=== PATIENT | female | born 1970 ===

== ENCOUNTER 2019-07-09 06:03 | Inpatient (IN) | payer OTHER ==
[~2019-07-09] VITALS: Ht 157.5 cm; Wt 42.2 kg
[~2019-07-09 06:03] MED LIST: AMOXICILLIN500 M1 PO
[2019-07-10] MEDS ORDERED: GABAPENTIN300 MG PO (11:01)
== END 2019-07-10 14:34 | disposition home or self-care (01) | DRG 581 ==
LOC: CIR.AMB 06:03 → O/R 15:17 → OB/GYN 15:26 → CIR.AMB 16:01 → OB/GYN 07-10 14:34
PROVIDERS: Plastic Surgery; ADMIT Surgery
PROC: 0HHV0NZ Insertion of Tissue Expander into Bilateral Breast, Open Approach (ICD-10-PCS; 2019-07-09)
PROC: CW1 Nuclear Medicine, Anatomical Regions, Planar Nuclear Medicine Imaging (ICD-10-PCS; 2019-07-09)
PROC: 07B50ZX Excision of Right Axillary Lymphatic, Open Approach, Diagnostic (ICD-10-PCS; principal; 2019-07-09 11:45)
PROC: 0HTV0ZZ Resection of Bilateral Breast, Open Approach (ICD-10-PCS; 2019-07-09 11:45)
DX: C50.511 Malignant neoplasm of lower-outer quadrant of right female breast (principal); Z17.0 Estrogen receptor positive status [ER+]